=== PATIENT | male | born 1985 | race Caucasian/White ===

== ENCOUNTER 2020-03-13 11:34 | Emergency (ER) | payer MEDICAID ==
[~2020-03-13] VITALS: Ht 177.8 cm; Wt 78.0 kg
[~2020-03-13 11:34] MED LIST: FLUT16SP2 NS
[2020-03-13 11:42] VITALS: BP 133/70
[2020-03-13 12:43] LABS: CLARITY,URINE TURBID (Clear); COLOR,URINE RED (Yellow); GLUCOSE, URINE NEGATIVE (Neg); KETONES,URINE NEGATIVE (Neg); LEUKOCYTE ESTERASE ,URINE MODERATE (Neg); NITRITES, URINE NEGATIVE (Neg); OCCULT BLOOD,URINE LARGE (Neg); PROTEIN,URINE 100 mg/dl (Neg)
[2020-03-13 12:54] LABS: UA COLLECTION TYPE CLN CATCH MIDSTREAM
[2020-03-13 12:55] LABS: MUCUS STRANDS NONE SEEN /LPF (Neg); SQUAMOUS EPITHELIAL CELL,UR MODERATE /LPF (FEW); TRANSITIONAL EPI CELLS,URINE FEW /HPF
[2020-03-13 12:56] LABS: BACTERIA,URINE FEW /HPF (Neg); RBC,URINE TNTC /HPF (0-2); WBC,URINE TNTC /HPF (0-4)
== END 2020-03-13 13:19 | disposition home or self-care (01) ==
LOC: ER 11:34
DX: R31.9 Hematuria, unspecified (principal); R10.32 Left lower quadrant pain; G89.29 Other chronic pain; Z79.899 Other long term (current) drug therapy
CPT/HCPCS: 81001; 87088; 99283

== ENCOUNTER 2021-09-04 13:56 | Emergency (ER) | payer MEDICAID ==
[~2021-09-04] VITALS: Ht 177.8 cm; Wt 68.2 kg
[2021-09-04 15:04] VITALS: BP 126/70
== END 2021-09-04 17:13 | disposition home or self-care (01) ==
LOC: ER 13:57
DX: H65.91 Unspecified nonsuppurative otitis media, right ear (principal); G89.29 Other chronic pain; Z87.891 Personal history of nicotine dependence
CPT/HCPCS: 99281; 99282

== ENCOUNTER 2021-09-11 14:59 | Emergency (ER) | payer MEDICAID ==
[~2021-09-11] VITALS: Ht 180.3 cm; Wt 68.2 kg
[2021-09-11 15:30] VITALS: BP 141/81
== END 2021-09-11 17:40 | disposition home or self-care (01) ==
LOC: ER 15:00
DX: R05.9 Cough, unspecified (principal); Z20.822 Contact with and (suspected) exposure to COVID-19; R09.81 Nasal congestion; G89.29 Other chronic pain
CPT/HCPCS: 36415; 99283; U0003; U0005

== ENCOUNTER 2022-01-09 08:44 | Emergency (ER) | payer MEDICAID ==
[~2022-01-09] VITALS: Ht 177.8 cm; Wt 68.2 kg
[2022-01-09 08:51] VITALS: BP 117/63
[2022-01-09] MEDS ORDERED: MELO-102 PO (10:06)
== END 2022-01-09 11:12 | disposition home or self-care (01) ==
LOC: ER 08:45
DX: S93.401A Sprain of unspecified ligament of right ankle, initial encounter (principal); M25.571 Pain in right ankle and joints of right foot; R42 Dizziness and giddiness; G89.29 Other chronic pain; Z79.899 Other long term (current) drug therapy; W19.XXXA Unspecified fall, initial encounter; Y93.89 Activity, other specified; Y92.89 Other specified places as the place of occurrence of the external cause; Y99.8 Other external cause status
CPT/HCPCS: 29515; 73610; 99284; L1930

== ENCOUNTER 2023-04-29 12:59 | Emergency (ER) | payer MEDICAID ==
[~2023-04-29] VITALS: Ht 180.3 cm; Wt 90.0 kg
[~2023-04-29 12:59] MED LIST changes: +MELO-102 PO
[2023-04-29 13:05] VITALS: TEMP 97
[2023-04-29 14:10] VITALS: BP 146/95; PULSE 73; RESP 18; O2SAT 98
--- NOTE | 2023-04-29 16:14 | NUR ---
IT INTEGRATION ARCHITECT ASSESSMENT REVIEWED BY DAVID RN; APPROVED
== END 2023-04-29 16:30 | disposition home or self-care (01) ==
LOC: ER 13:00
DX: H53.9 Unspecified visual disturbance (principal); G89.29 Other chronic pain; M54.9 Dorsalgia, unspecified
CPT/HCPCS: 99281